=== PATIENT | male | born 1990 | race Caucasian/White ===

== ENCOUNTER 2022-01-16 18:49 | Emergency (ER) | payer OTHER ==
[2022-01-16] MEDS ORDERED: Rocephin 1000 MG INJ IM ONE (19:04)
[2022-01-16] MEDS ORDERED: TORAdol 30 mg Injection IM ONE (19:04)
[2022-01-16 19:10] VITALS: O2SAT 97
[2022-01-16] MEDS ORDERED: TORAdol 30 mg Injection ONE (19:11)
[2022-01-16] MEDS ORDERED: Rocephin 1000 MG INJ ONE (19:11)
[2022-01-16] MEDS ORDERED: XYLOCAINE 1% HCL 20 ML MDV IJ ONE (19:11)
--- NOTE | 2022-01-16 19:12 | ERPHSYRPT ---
- History of Present Illness Time Seen by Provider: 01/16/22 19:06 Source: patient Exam Limitations: no limitations Physician History: 31-year-old male came to the emergency room with complaining of severe toothache especially on the upper part of the molars on both sides with more pain on the left side of the sinus. Patient has never seen dentist. Patient has a long history of bad teeth. Patient denies any other symptoms. Timing/Duration: week(s) Severity: moderate Associated Symptoms: denies symptoms Allergies/Adverse Reactions: No Known Drug Allergies Allergy (Unverified 01/16/22 18:59) - Review of Systems Constitutional: No Symptoms Eyes: No Symptoms Ears, Nose, & Throat: Loose Teeth Respiratory: No Symptoms Cardiac: No Symptoms Abdominal/Gastrointestinal: No Symptoms Genitourinary Symptoms: No Symptoms Musculoskeletal: No Symptoms - Physical Exam General Appearance: no apparent distress Eye Exam: PERRL/EOMI Ears, Nose, Throat Exam: moist mucous membranes, other (multiple teeth decays) Neck Exam: normal inspection Respiratory Exam: normal breath sounds Cardiovascular Exam: regular rate/rhythm - Course Nursing assessment & vital signs reviewed: Yes Ordered Tests: Medication Summary Discontinued Medications Generic Name Dose Route Start Last Admin Trade Name Freq PRN Reason Stop Dose Admin Ceftriaxone Sodium 1,000 mg 01/16/22 19:04 Ceftriaxone Sodium 1000 Mg Inj Vial IM 01/16/22 19:05 STAT ONE Ketorolac Tromethamine 60 mg 01/16/22 19:04 Ketorolac Tromethamine 30 Mg/Ml Inj IM 01/16/22 19:05 STAT ONE - Progress Progress: unchanged Counseled pt/family regarding: diagnosis, need for follow-up (with Dentist PAOLA) - Departure Departure Disposition: Home Clinical Impression: Abscess, dental Condition: Stable Critical Care Time: No Referrals: ALFREDA CROFT [Primary Care Provider] - Follow up/PCP as directed (Follow up with Dentist PAOLA) Instructions: Tooth Decay, Adult (DC), Tooth Abscess (DC) Additional Instructions: Discharge/Care Plan ARTEMIOROXY OBREGON was seen on 01/16/22 in the Emergency Room. The patient was counseled regarding Diagnosis,Lab results, Imaging studies, need for follow up and when to return to the Emergency Room. Prescriptions given: Discharge Note I have spoken with the patient and/or caregivers. I have explained the patient's condition, diagnosis and treatment plan based on the information available to me at this time. I have answered the patient's and/or caregiver's questions and addressed any concerns. The patient and/or caregivers have as good understanding of the patient's diagnosis, condition and treatment plan as can be expected at this point. The vital signs have been stable. The patient's condition is stable and appropriate for discharge from the emergency department. The patient will pursue further outpatient evaluation with the primary care physician or other designated or consulting physician as outlined in the discharge instructions. The patient and/or caregivers are agreeable to this plan of care and follow-up instructions have been explained in detail. The patient and/or caregivers have received these instruction. The patient/and or caregivers are aware that any significant change in condition or worsening of symptoms should prompt an immediate return to this or the closest emergency department or call 911. ROXY ULLOA was seen on 01/16/22 n the Emergency Room. At that time you were treated for an emergent condition, during your visit Laboratory, Radiology and/or other procedures may have been ordered. It is very important that you follow-up with your Primary Care Physician ALFREDA CROFT within the next 24-48 hours to review your Emergency Room visit and the final results of testing that was ordered. Some test results such as Urine Cultures, Blood Cultures, and other cultures if ordered will not be finalized for 24-48 hours. If you do not have a Primary Care Provider please call the medical records department at [phone] to obtain a copy of your results or you may sign into our patient portal to obtain these results by visiting us @ [email or web address] and completing the following steps: 1. Click on the Patient Portal link 2. Click the Patient Self Enrollment Link to complete the enrollment form and entering your 3. Once the enrollment form is completed you will receive an email with a temporary ID and password at the email address you provided. 4. Next choose a user name and password. Your user name must be at least 4 characters long and your password must be at least 4 characters long. 5. Choose a security question from the list and provide your answer to the question. If you already have signed into the Health Portal you may access your Health Care Information 23/05 by the following steps: 1. Login to our website @ [email or web address] 2. Enter your original user name and password. FAQS The [facility] Health Portal is an online tool that contains your Lab Results, Radiology Reports, Visit History, Discharge Instructions and Health Summary Lab and Radiology Results will not be available for 72 hours on the portal. The Portal is a secure site, passwords are encryted and URLs are re-written so they cannot be copied and pasted. You and authorized family members are the only ones who can access your Portal. Also there is a timeout feature that protects your information if you leave the Portal page open. If you have technical difficulty please use the Contact Us link on the page this will allow you to submit any questions you have regarding the Portal or you may contact the Medical Record Department at [phone] ext [phone]. Prescriptions: Amoxicillin 500 mg PO TID #30 tablet Naproxen 500 mg [Naprosyn 500 MG] 500 mg PO BIDAC #30 tablet
[2022-01-16 19:31] VITALS: BP 150/96; PULSE 82
== END 2022-01-16 19:32 | disposition home or self-care (01) ==
LOC: ED 18:49
DX: K04.7 Periapical abscess without sinus (principal)
CPT/HCPCS: 96372; 99284; J0696; J1885